=== PATIENT | female | born 1965 | race Caucasian/White ===

== ENCOUNTER → 2017-08-13 | Day surgery (SDC) | payer OTHER ==
--- NOTE | 2017-08-13 14:43 | Operative Report ---
Operative/Inv Procedure Report Surgery Date: 08/13/17 Name of Procedure: D&C hysteroscopy Pre-Operative Diagnosis: Menorrhagia Post-Operative Diagnosis: Same Estimated Blood Loss: 50ml to 100ml Surgeon/Packing Machine Feeder: Randi Mc MD Anesthesia: moderate sedation Operative/Procedure Note Note: Patient was taken to the operating room placed in dorsal supine position. After adequate anesthesia, patient was prepped and draped for surgery. Examination under anesthesia was performed. CO2 tenaculum was placed on the anterior lip of the cervix gentle downward traction was used. The cervix was dilated 29 Hegar to left insertion of the hysteroscope. Under direct visualization to hysteroscopy was performed using gas hysteroscope was removed and endocervical curettage was performed. And endometrial curettage was performed. All instruments removed from the vagina. The counts were correct the patient was awakened from anesthesia. And transported to recovery room awake and alert. Findings: Size uterus no adnexal masses heavy uterine lining posteriorly the posterior wall of fundus with heavy tissue
== END ==
LOC: STS 02:15
DX: N92.0 Excessive and frequent menstruation with regular cycle (principal)
CPT/HCPCS: J0131; J2250; J2405